=== PATIENT | male | born 1990 | race African-American/Black ===

== ENCOUNTER 2023-04-11 10:43 | Emergency (ER) | payer OTHER ==
[~2023-04-11] VITALS: Ht 170.2 cm; Wt 117.9 kg
== END 2023-04-11 14:15 | disposition home or self-care (01) ==
LOC: ER 10:43
DX: J10.1 Influenza due to other identified influenza virus with other respiratory manifestations (principal); Z20.822 Contact with and (suspected) exposure to COVID-19

== ENCOUNTER 2024-04-23 05:09 | Emergency (ER) | payer OTHER ==
[~2024-04-23] VITALS: Ht 172.7 cm; Wt 117.9 kg
[2024-04-23] MEDS ORDERED: HYDROCODONE/CHLORPHEN P-STIREX 5 ML ML PO STA (05:44)
== END 2024-04-23 05:54 | disposition home or self-care (01) ==
LOC: ER 05:11
DX: M94.0 Chondrocostal junction syndrome [Tietze] (principal); R07.89 Other chest pain